=== PATIENT | female | born 1990 | race Caucasian/White ===

== ENCOUNTER 2019-02-07 06:04 | Emergency (ER) | payer BC, OTHER ==
[~2019-02-07] VITALS: Ht 182.9 cm; Wt 138.3 kg
[2019-02-07 06:24] LABS: ABSOLUTE BASOPHILS 0.1 thou/uL (0.0-0.2); ABSOLUTE EOSINOPHILS 0.2 thou/uL (0.0-0.7); ABSOLUTE LYMPHOCYTES 4.6 thou/uL (0.8-5.3); ABSOLUTE MONOCYTES 0.8 thou/uL (0.0-1.2); ABSOLUTE NEUTROPHILS 6.4 thou/uL (1.6-8.1); BASOPHILS 0.4 %; EOSINOPHILS 1.3 %; HEMATOCRIT 48.7 % (37.0-47.0); LYMPHOCYTES 38.1 %; MCH 27.2 pg (26.0-34.0); MCHC 32.8 g/dL (28.0-37.0); MCV 82.8 fL (80.0-100.0); MONOCYTES 6.9 %; MPV 7.3 fl. (7.2-11.1); NUCLEATED RBCS 0 /100WBC; PLATELET COUNT* 306 thou/uL (150-400); POLYS 53.3 %; RBC 5.88 mil/uL (4.20-5.00); RDW-CV 14.5 % (10.5-14.5)
[2019-02-07 06:34] LABS: ANION GAP 7 mmol/L (7-16); BUN 13 mg/dL (7-18); CALCIUM 9.2 mg/dL (8.5-10.1); CHLORIDE 106 mmol/L (98-107); CO2 29 mmol/L (21-32); CREATININE 1.1 mg/dL (0.6-1.3); GLUCOSE 103 mg/dL (70-99); POTASSIUM 4.2 mmol/L (3.5-5.1); SODIUM 142 mmol/L (136-145)
[2019-02-07 06:37] LABS: PROTIME 9.8 Seconds (9.20-11.50)
[2019-02-07 06:45] LABS: ALKALINE PHOSPHATASE 80 U/L (46-116); LIPASE 138 U/L (73-393); NT-PRO BRAIN NAT PEPTIDE 31 pg/mL (<300); SGOT 13 U/L (15-37); SGPT 33 U/L (30-65); TOTAL BILIRUBIN 0.3 mg/dL (<0.1-1.0); TOTAL PROTEIN 7.6 g/dL (6.4-8.2); TROPONIN-I LEVEL <0.06 ng/mL (<0.06)
[2019-02-07] MEDS ORDERED: SYMBICORT160 MCG/4. INH (07:02)
[2019-02-07] MEDS ORDERED: ACCUNEB SO1.25 MG/1 INH (07:03)
[2019-02-07 08:50] VITALS: BP 150/95
--- NOTE | 2019-02-08 13:49 | EKG ---
[place] [address] ELECTROCARDIOGRAM REPORT Name: LASHA ROY Room: [facility] Catarina#: [id number] Admission: 02/07/19 Attend Phys: Discharge: 02/07/19 Date of : [birth year] Report #: [id number] THIS REPORT FOR: //name// [facility] ED Test Date: 2019-02-07 Test Time: 07:02:34 Pat Name: LASHA ROY Department: Patient ID: [id number]- Room: Gender: F [employer]: : 1990 Requested By: Jennifer Myers Order Number: [id number] MD: Kailash Quintana Measurements Intervals [place] Rate: 63 P: 68 VT: 177 QRS: 38 QRSD: 90 T: 29 QT: 427 QTc: 438 Interpretive Statements Sinus rhythm No previous ECG available for comparison Electronically Signed On 02-08-2019 13:49:21 CDT by Kailash Quintana [email or web address] <ELECTRONICALLY SIGNED> By: Kailash Quintana MD, [facility] 02/08/19 [id number] Kailash Quintana MD, FACC /EPI
== END 2019-02-07 08:52 | disposition home or self-care (01) ==
LOC: M.ERS 06:04
PROVIDERS: Emergency Medicine
DX: G43.909 Migraine, unspecified, not intractable, without status migrainosus (principal)

== ENCOUNTER → 2019-03-06 | Outpatient (CLI) | payer BC, OTHER ==
[~2019-03-06] MED LIST: ACCUNEB SO1.25 MG/1 INH; SYMBICORT160 MCG/4. INH
== END ==
LOC: M.MRI 16:57
DX: G43.909 Migraine, unspecified, not intractable, without status migrainosus (principal); J34.89 Other specified disorders of nose and nasal sinuses; R20.0 Anesthesia of skin; R20.2 Paresthesia of skin; R47.02 Dysphasia; G83.9 Paralytic syndrome, unspecified